=== PATIENT | male | born 1945 | race Caucasian/White ===

== ENCOUNTER 2018-06-26 08:34 | Day surgery (SDC) | payer BC, OTHER ==
[2018-06-24 13:37] VITALS: BMI 32.3
--- NOTE | 2018-06-26 07:19 | HP ---
History & Physical Update - History History: No Change (Initial H&P is in his paper chart. No new complaints or medications. Here today for elective L4-S1 laminectomy.) - Physical Physical: No Change - Assessment Assessment: No Change - Plan Plan: No Change (Initial H&P is in his paper chart. No new complains or medications. Here today for elective)
[2018-06-26] MEDS ORDERED: oxyCODONE HCL 10 MG SUSTAINED ACTING TABLET PO STA (09:00)
[2018-06-26] MEDS ORDERED: MIDAZOLAM HCL 2 MG/2 ML SINGLE DOSE VIAL ONE (11:14)
[2018-06-26] MEDS ORDERED: BUPIVACAINE HCL/PF (5 MG/ML) 30 ML VIAL IJ ONE (11:14)
[2018-06-26] MEDS ORDERED: DEXAMETHASONE SOD PHOSPHATE/PF 10 MG/ML SDV ONE (11:14)
[2018-06-26] MEDS ORDERED: LIDOCAINE 1%/EPI 1:100000 (20 ML MULTI DOSE VIAL) ONE (11:25)
[2018-06-26] MEDS ORDERED: THROMBIN (BOVINE) 5,000 UNIT VIAL TP ONE ×3 (11:25→13:10)
[2018-06-26] MEDS ORDERED: methylPREDNISolone ACET (DEPO) 40 MG/1 ML VIAL ONE (11:25)
[2018-06-26] MEDS ORDERED: DEXAMETHASONE SOD PHOSPHATE 4 MG/1 ML VIAL ONE (12:12)
[2018-06-26] MEDS ORDERED: ONDANSETRON 4 MG/2 ML VIAL ONE (12:12)
[2018-06-26] MEDS ORDERED: ceFAZolin SODIUM 1 GM VIAL ONE (12:12)
[2018-06-26] MEDS ORDERED: ePHEDrine SULFATE 50 MG/1 ML AMPULE ONE (12:19)
[2018-06-26] MEDS ORDERED: GUM MASTIC/STORAX/MSAL/ALCOHOL 1 DRP DROPSBTL MC ONE (12:47)
--- NOTE | 2018-06-26 13:40 | OP ---
Operative Note - Note: Operative Date: 06/26/18 Pre-Operative Diagnosis: L4-S1 spinal stenosis with radiculopathy Operation: L4-S1 bilateral laminectomy Post-Operative Diagnosis: Same as Pre-op Surgeon: Ezequiel Mora Mechanical Engineering Technician: Bib Connell Anesthesiologist/SALES AND MARKETING ANALYST: Mildred Zamora Anesthesia: Spinal Estimated Blood Loss (mls): 25 Fluid Volume Replaced (mls): 1,200 Operative Report Dictated: Yes
--- NOTE | 2018-06-26 13:41 | SURG ---
Surgery Play Reader Note Play Reader: Bib Connell PA-C Date of Service: 06/26/18 Diagnosis: L4-S1 spinal stenosis with radiculopathy Procedure: L4-S1 bilateral laminectomy I was present for the entirety of the operative procedure. For further detail, please refer to operative report. Visit type - Case Type Case Type: Scheduled - New patient This patient is new to me today: Yes Date on this admission: 06/26/18
[2018-06-26] MEDS ORDERED: oxyCODONE HCL 5 MG TABLET PO PRN (14:29)
[2018-06-26] MEDS ORDERED: ONDANSETRON 4 MG/2 ML VIAL IVPUSH PRN (14:29)
[2018-06-26] MEDS ORDERED: LACTATED RINGERS SOLUTION 1,000 ML IV SCH (14:30)
--- NOTE | 2018-06-26 14:42 | OP ---
DATE OF OPERATION: 06/26/2018 PREOPERATIVE DIAGNOSIS: Spinal stenosis L4-L5 and L5-S1. POSTOPERATIVE DIAGNOSIS: Spinal stenosis L4-L5 and L5-S1. PROCEDURE PERFORMED: Hemilaminectomy L4-L5 and L5-S1. SURGEON: Morgan Nieves MD. PERL PROGRAMMER: SHAWN Guzman. ESTIMATED BLOOD LOSS: 50 mL. INTRAVENOUS FLUIDS: Per anesthesia. ANESTHESIA: Spinal/TLIP. CONDITION: The patient was brought to the PACU in stable condition. INDICATIONS FOR SURGERY: The patient is a 73-year-old gentleman who has been suffering from pain from his back down to his leg. X-rays and MRI were completed, which show that he has spinal stenosis at L4-L5 and L5-S1. He had gone through an exhaustive course of treatment for this which included medications, physical therapy, as well as injections. Unfortunately, his pain continued to persist despite of all of this. At this point the risks, benefits, and alternatives were discussed and the patient consented to surgery. DESCRIPTION OF PROCEDURE: The patient was brought to the operating room by the anesthesia staff. After appropriate patient identification was performed, spinal anesthesia was given along with a TLIP block. The patient was able to position himself prone onto the OR table with all areas of bony prominences well padded at this time. Two needles were placed into his back to noreen off the L4-L1 segments. X-rays were taken to confirm the site. The needle was removed and 10 mL of lidocaine with epinephrine were injected into the back at this time. His back was prepped and draped in a sterile manner. At this point a time-out was completed. An incision was made from the top of L4 down to the bottom of S1. Dissection was carried down to the fascia. The fascia was then split at this time and appropriate retractors were then placed in. A spinal needle was placed onto the L4 lamina to noreen off the L4-L5 level. X-rays were taken to confirm. The needle was removed and the microscope was brought in. The interspinous ligament at L4-L5 and L5-S1 was removed. The spinous processes at L5 was removed. The lamina at L5 was removed. A complete decompression was performed at this point. By the end of the procedure the L5 and S1 nerve root appeared to be well decompressed. All bleeding was controlled at this time. Steroids were placed over the nerve root and Floseal was placed over that. The fascia was closed with number 1 Vicryl suture, the subcutaneous tissue was closed with 2-0 Vicryl suture, and the skin was closed with a 3-0 Monocryl suture. Dermabond was applied. Steri-Strips were applied. Sterile dressings were applied. The patient was placed supine on the OR bed and brought to the PACU in stable condition. Lisa SKINNER/[id number]
[2018-06-26] MEDS ORDERED: oxyCODONE HCL 5 MG TABLET ONE (15:41)
[2018-06-26 17:25] VITALS: BP 123/76; PULSE 83; TEMP 97.9
== END 2018-06-26 17:10 | disposition home or self-care (01) ==
LOC: FASU 08:34
PROVIDERS: ATTEND Orthopaedic Surgery Orthopaedic Surgery of the Spine
PROC: 01NB0ZZ Release Lumbar Nerve, Open Approach (ICD-10-PCS; principal; 2018-06-26 12:30)
DX: M48.061 Spinal stenosis, lumbar region without neurogenic claudication (principal); M48.07 Spinal stenosis, lumbosacral region
CPT/HCPCS: 72100-TC-FY; 82962; 94760